=== PATIENT | male | born 1950 | race Two or more races ===

== ENCOUNTER 2019-03-23 19:24 | Inpatient (IN) | payer MEDICARE, OTHER ==
[~2019-03-23] VITALS: Ht 167.6 cm; Wt 66.7 kg
--- NOTE | 2019-03-23 19:40 | NUR ---
PT [facility]TE [facility] WITH A C/O COFFEE GROUND EMESIS S/P HD. PT HAS A TRACH WITH VENT SETTINGS: AC18, TV500, FIO2 50%, PEEP5
[2019-03-23 20:19] LABS: BASOPHILS % (AUTO) 0.2 % (0.0-2.0); HEMATOCRIT 29 % (39-51); HEMOGLOBIN 8.9 g/dL (13.5-17.5); LYMPHOCYTES # (AUTO) 0.3 /CMM (0.8-4.8); LYMPHOCYTES % (AUTO) 1.3 % (20.0-44.0); MEAN CORPUSCULAR HGB CONC 31 g/dl (31.0-36.0); MEAN CORPUSCULAR VOLUME 82 fL (80-96); MONOCYTES # (AUTO) 0.7 /CMM (0.1-1.30); MONOCYTES % (AUTO) 2.6 % (2.0-12.0); NEUTROPHILS # (AUTO) 26.2 /CMM (1.8-8.9); NEUTROPHILS % (AUTO) 95.9 % (43.0-81.0); PLATELET COUNT (AUTO) 375 /CMM (150-450); WHITE BLOOD COUNT (AUTO) 27.3 K/uL (4.3-11.0)
[2019-03-23 20:26] LABS: CALCIUM, SERUM 9.6 mg/dL (8.5-10.1); CREATININE 3.7 mg/dL (0.6-1.3); POTASSIUM 3.1 mmol/L (3.5-5.1)
[2019-03-23] MEDS ORDERED: IV NS 0.9% 250 ML BAG IV ONE (20:30)
[2019-03-23 20:37] LABS: ALBUMIN 1.9 g/dL (3.4-5.0); BILIRUBIN,DIRECT 0.2 mg/dL (0.0-0.2); BILIRUBIN,TOTAL 0.6 mg/dL (0.2-1.0); TOTAL PROTEIN, SERUM 8.8 g/dL (6.4-8.2)
[2019-03-23] MEDS ORDERED: PIPERACILLIN /TAZOBACTAM 3.375 G in IV D5W 50 ML IV ONE (21:00)
[2019-03-23] MEDS ORDERED: VANCOMYCIN 1 GM VIAL ONE (21:00)
[2019-03-23] MEDS ORDERED: PIPERACILLIN /TAZOBACTAM 3.375 G VIAL IV ONE (21:00)
[2019-03-23] MEDS ORDERED: VANCOMYCIN 1 GM in IV D5W 250 ML IV ONE (21:00)
--- NOTE | 2019-03-23 21:31 | NUR ---
pt gone to ct via [facility] with myself and RT.
[2019-03-23] MEDS ORDERED: IV NS 0.9% 1,000 ML BAG IV ONE (22:00)
--- NOTE | 2019-03-23 22:00 | NUR ---
PT RETURNED FROM CT.
--- NOTE | 2019-03-23 22:05 | NUR ---
PT HAD A LARGE BM. PT WAS CLEANED AND NEW GOWN, DIAPER, CHUX AND BED LINEN APPLIED. PT HAS A WOUND ON HIS COCCYX, LT UPPER SHOULDER, & RT HEEL.
[2019-03-23] MEDS ORDERED: PANTOPRAZOLE 40 MG VIAL ONE (22:20)
[2019-03-23 22:22] LABS: ABG BASE EXCESS -4.8 mmol/L; ABG OXYGEN SATURATION 99.1 % (92.0-98.5); ABG PCO2 31.9 mmHg (35.0-45.0); ABG PO2 203.2 mmHg (75.0-100.0); AaDO2 117.4 mmHg; COHb 0.8 % (0.5-1.5); MetHb 0.4 % (0.0-1.5); O2Hb 97.9 % (94.0-97.0); PEEP,BG 5 cm H2O; VENT MODE, BG AC 18 500 50% +5; VT, ABG 500 mL
[2019-03-23] MEDS ORDERED: PANTOPRAZOLE 40 MG VIAL IV ONE (22:30)
--- NOTE | 2019-03-23 22:55 | NUR ---
REOPRT GIVEN TO JEANMARIE PEÑALOZA
[2019-03-23] MEDS ORDERED: Z GUARD REMEDY 2 OZ OINT TP PRN (23:00)
[2019-03-23] MEDS ORDERED: MAGNESIUM HYDROXIDE 30 ML UDC PO PRN (23:00)
[2019-03-23] MEDS ORDERED: ONDANSETRON HCL/PF 4 MG/2 ML VIAL IVP PRN (23:00)
[2019-03-23] MEDS ORDERED: ZOLPIDEM TARTRATE 5 MG TABLET PO PRN (23:00)
[2019-03-23] MEDS ORDERED: ACETAMINOPHEN 325 MG TABLET PO PRN (23:00)
[2019-03-23] MEDS ORDERED: HYDROCODONE/APAP 5/325MG 1 EACH TABLET PO PRN (23:00)
--- NOTE | 2019-03-23 23:10 | NUR ---
RT NOTIFIED. READY FOR TRANSFER IN 10 MINS.
[2019-03-23] MEDS ORDERED: DEXTROSE 50%-WATER 50 ML DISP.SYRIN IV PRN (23:30)
--- NOTE | 2019-03-23 23:40 | NUR ---
PT TRANSPORTED TO [facility] VIA TOM Sheppard/RT GAUTAM.
[2019-03-23 23:50] VITALS: BP 101/51
--- NOTE | 2019-03-23 23:50 | NUR ---
68 years old male patient admitted to the [facility] unit with the DX of Sepsis, Patient arrived via gurney. In no acute distress, breathing even and unlabored. No SOB noted, Patient trach to vent with prescribed settings. trach intact, patent, in midline. saturation 98%, Suctioned patient, noted red color thick, moderate amount of secretions. skin warm, dry to touch, afebrile. Patient non-verbal, obtunded, eyes closed. No S/S of pain noted at this time, no facial grimacing noted. IV sites with no S/S of infection/ Infiltrations. Right upper chest Jona cath in place, TRACI AV shunt in place. On Tele monitoring with sinus rhythm. Body assessment done per protocol. Safety maintained, bed at the lowest locked position. Call light within reach. Will continue to monitor as per plan of care.
[2019-03-24] VITALS (22 sets, daily range): BP systolic 81–106; BP diastolic 43–74
[2019-03-24] MEDS: IV NS 0.9% 1,000 ML IV PRN ×2 (01:58→16:02)
[2019-03-24] MEDS ORDERED: ZINC1CAP2 GT (03:03)
[2019-03-24] MEDS ORDERED: METO5SOL GT (03:34)
[2019-03-24] MEDS ORDERED: METO25TA6 GT (03:34)
[2019-03-24] MEDS ORDERED: BISA-79 RC (03:34)
[2019-03-24] MEDS ORDERED: FAMO20TA8 GT (03:34)
[2019-03-24] MEDS ORDERED: AMIN30LI27 GT (03:34)
[2019-03-24] MEDS ORDERED: LACT1CAP61 GT (03:34)
[2019-03-24] MEDS ORDERED: VIT1TABL46 GT (03:34)
[2019-03-24] MEDS ORDERED: DIPH-530 GT (03:34)
[2019-03-24] MEDS ORDERED: VIT1TABL83 GT (03:34)
[2019-03-24] MEDS ORDERED: CHLO473M3 BU (03:34)
[2019-03-24] MEDS ORDERED: LEVE100S GT (03:34)
[2019-03-24] MEDS ORDERED: TRAM50TA GT (03:34)
[2019-03-24] MEDS ORDERED: HYDR-4384 GT (03:34)
--- NOTE | 2019-03-24 03:55 | NUR ---
patient seen and examined by Renita Cline, relayed to her that patient last blood sugar was 171, no coverage was given because patient NPO, and asked her if she would like to change the fluids to D5 NS, she denied. also asked her if she want morning meds to be given through g-tube, she said keep patient NPO untill further order. Noted. Will continue to keep patient NPO untill further order.
[2019-03-24] MEDS ORDERED: CHLORHEXIDINE GLUCONATE 473 ML BOTTLE MM PRN (04:00)
[2019-03-24] MEDS ORDERED: PIPERACILLIN /TAZOBACTAM 2.25 G in IV D5W 50 ML IV ONE (05:00)
[2019-03-24] MEDS ORDERED: METOCLOPRAMIDE HCL 5 MG/5 ML UDC GT SCH (05:00)
[2019-03-24] MEDS: METOPROLOL TARTRATE 25 MG TABLET GT SCH ×3 (05:00→21:00)
[2019-03-24] MEDS ORDERED: PIPERACILLIN /TAZOBACTAM 2.25 G VIAL IV ONE (05:31)
[2019-03-24] MEDS: BLOOD SUGAR DIAGNOSTIC 1 EACH STRIP IN SCH ×4 (05:41→17:04)
[2019-03-24] MEDS: PANTOPRAZOLE 40 MG VIAL IV SCH ×2 (05:51→17:04)
--- NOTE | 2019-03-24 05:51 | NUR ---
LOPRESSOR, REGLAN, AND PROTONIX NOT GIVEN ORDERED, DUE TO PATIENT NPO UNTIL FURTHER ORDER, PER LINETTE GAGNON
[2019-03-24] MEDS ORDERED: ZOLPIDEM TARTRATE 5 MG TABLET GT PRN (07:01)
[2019-03-24] MEDS ORDERED: ACETAMINOPHEN 650 MG/20.3 ML UDC GT PRN (07:02)
[2019-03-24 07:08] LABS: BASOPHILS % (AUTO) 0.2 % (0.0-2.0); EOSINOPHILS % (AUTO) 0.1 % (0.0-6.0); HEMATOCRIT 21 % (39-51); LYMPHOCYTES # (AUTO) 0.3 /CMM (0.8-4.8); LYMPHOCYTES % (AUTO) 1.5 % (20.0-44.0); MEAN CORPUSCULAR HGB CONC 29 g/dl (31.0-36.0); MEAN CORPUSCULAR VOLUME 91 fL (80-96); MONOCYTES # (AUTO) 0.5 /CMM (0.1-1.30); MONOCYTES % (AUTO) 2.9 % (2.0-12.0); NEUTROPHILS # (AUTO) 17.6 /CMM (1.8-8.9); NEUTROPHILS % (AUTO) 95.3 % (43.0-81.0); PLATELET COUNT (AUTO) 240 /CMM (150-450); RED BLOOD CELL COUNT(AUTO) 2.28 MIL/uL (4.5-6.0); WHITE BLOOD COUNT (AUTO) 18.5 K/uL (4.3-11.0)
[2019-03-24] MEDS ORDERED: MAGNESIUM HYDROXIDE 30 ML UDC GT PRN (07:13)
[2019-03-24] MEDS ORDERED: FEE PK DOSING 1 MIN EA MC ONE (07:15)
--- NOTE | 2019-03-24 07:25 | NUR ---
Remained in bed, obtunded, In no acute distress, breathing even and unlabored. No SOB noted, Patient trach to vent with prescribed settings. trach intact, patent, in midline. saturation 100%, No S/S of pain noted at this time, no facial grimacing noted. IV sites with no S/S of infection/ Infiltrations, with fluids as ordered. Due meds given as ordered, tolerated well. On Tele monitoring with sinus rhythm. Safety maintained, bed at the lowest locked position. Call light within reach. endorse to AM shift nurse for BERNABE
[2019-03-24] MEDS ORDERED: VANCOMYCIN 500 MG in IV D5W 100 ML IV PRN (07:30)
[2019-03-24 07:59] LABS: BAND % (MANUAL) 2 % (0.0-5.0); LYMPHOCYTES % (MANUAL) 3 % (16-48); MONOCYTES % (MANUAL) 3 % (0-11.0); NEUTROPHILS % (MANUAL) 92 (42-76)
--- NOTE | 2019-03-24 08:00 | NUR ---
TD/RN AM SHIFT INITIAL NOTES RECEIVED PT ASLEEP IN BED, PT OBTUNDED, OPEN EYES. NO GRIMACING NOTED, NO ACUTE CHANGE OF CONDITION OR ACTIVE BLEEDING NOTED. NOTED WITH LOW BP 91/49, PRIMARY MD TO BE NOTIFIED, CHARGE NURSE AWARE. ON VENTILATOR WITH RATES SET PRESCRIBED, SATURATING @ 100%, LUNG SOUNDS CLEAR, RESPIRATIONS EVEN & UNLABORED. LUNG SOUNDS CLEAR. ON TELE WITH SINUS RHYTHM WITH PVCs AND PACs, HR 87. WITRH ON GOING IV INFUSION OF NS @ 60CC/HR, IV SITE PATENT WITH NO S/S OF INFECTION. AV SHUNT WITH POSITIVE THRILL & BRUIT, MANDO CATHETER DRESSING INTACT, CLEAN & DRY. PT ON NPO STATUS, GT CLAMP. PT IS COMFORTABLE, SCHEDULED AM MEDS TO BE GIVEN. CL WITHIN REACHED AND SAFETY MAINTAINED. ON GOING MONITORING. Addendum: 03/24/19 at 1139 by DERREK MANRIQUE RN ERROR IN CHARTING: TELE READING NOTED WITH NO PVCs AND PACs.
[2019-03-24] MEDS ORDERED: LACTOBACILLUS RHAMNOSUS GG 1 EACH CAP.SPRINK PO SCH (09:00)
[2019-03-24] MEDS: VIT B CMPLX 3/FA/VIT C/BIOTIN 1 TAB TABLET GT SCH (09:01)
[2019-03-24] MEDS: VITAMIN B COMP W-C 1 TAB TABLET GT SCH (09:01)
[2019-03-24] MEDS: LEVETIRACETAM SOL (5 ML) 100 MG/ML UDC GT SCH ×3 (09:01→21:39)
[2019-03-24] MEDS: ZINC SULFATE 220 MG CAPSULE GT SCH (09:02)
[2019-03-24] MEDS: TRAMADOL HCL 50 MG TABLET GT SCH (09:02)
[2019-03-24] MEDS: FAMOTIDINE (20 MG) 20 MG TABLET GT SCH (09:02)
[2019-03-24] MEDS: LACTOBACILLUS RHAMNOSUS GG 1 EACH CAP.SPRINK GT SCH ×2 (09:02→17:04)
--- NOTE | 2019-03-24 09:25 | NUR ---
TD/RN CONSENTS CONSENT OBTAINED FROM PT'S DAUGHTER (NEO SHIRLEY) FOR BLOOD TRANSFUSION AND HEMODIALYSIS. CONSENTS FILED IN CHART. CHARGE NURSE MADE AWARE.
[2019-03-24 09:41] LABS: CREATININE 3.8 mg/dL (0.6-1.3)
--- NOTE | 2019-03-24 09:43 | NUR ---
TD/RN ROUNDS - DR. TEE NOTIFIED DR. TEE OF PT'S HGB LEVEL. VERBAL ORDER RECEIVED TO TRANSFUSE 2 UNITS OF PRBC THEN RE-CHECK H&H AFTER ONE HOUR. ORDER NOTED AND CARRIED OUT.
[2019-03-24 09:46] LABS: MAGNESIUM 2.4 mg/dL (1.8-2.4); PHOSPHORUS 3.2 mg/dL (2.5-4.9)
[2019-03-24] MEDS: METOCLOPRAMIDE HCL 10 MG/10 ML UDC GT SCH ×3 (12:15→21:39)
[2019-03-24] MEDS: PIPERACILLIN /TAZOBACTAM 2.25 G in IV D5W 50 ML IV SCH ×2 (12:16→18:05)
--- NOTE | 2019-03-24 14:42 | NUR ---
TD/RN BLOOD TRANSFUSION - COMPLETED PT RECEIVED 2 UNITS OF PRBC WITH DIALYSIS. NO ADVERSE REACTION NOTED DURING AND POST TRANSFUSION. PT NOTED LOW BP SBP ABOVE 80s. DR. TEE NOTIFIED. DIALYSIS ON GOING. RECEIVED AN ORDER FROM DR. TEE TO TRANSFER PT ICU.
[2019-03-24] MEDS ORDERED: NOREPINEPHRINE 8 MG in IV D5W 500 ML IV PRN (15:00)
--- NOTE | 2019-03-24 15:15 | NUR ---
ICU/MRP CONTROLLER TO ICU - ROOM 255 PT BP STILL LOW AFTER DIALYSIS AND BLOOD TRANSFUSION. RECEIVED ORDER FROM DR. TEE TO TRANSFER PT TO ICU.
--- NOTE | 2019-03-24 15:20 | NUR ---
RT PT TRANSFERRED TO ICU ROOM 255. VENT PLUGGED INTO RED OUTLET. BMV AND SPARE TRACH @ HOB. ALARMS ARE SET AND AUDIBLE. NO SOB OR RESPIRATORY DISTRESS NOTED @ THIS TIME.
[2019-03-24 15:37] LABS: HEMOGLOBIN 9.3 g/dL (13.5-17.5)
--- NOTE | 2019-03-24 16:18 | NUR ---
ICU/RN H&H POST TRANSFUSION NOTIFIED DR. TEE OF PT'S H&H RESULTS (9.3 & 29). THE ADDITIONAL 2 UNITS PRBC ON STANDBY. ANOTHER H&H SCHEDULED @ 1999. NO ACUTE SIGN OF ACTIVE BLEEDING NOTED AT THIS TIME.
[2019-03-24] MEDS ORDERED: VANCOMYCIN 1 GM in IV D5W 250 ML IV ONE (17:00)
--- NOTE | 2019-03-24 17:06 | NUR ---
RT PT RECEIVED TRACH AND ON [facility] VENT. VENT IS PLUGGED INTO RED OUTLET W BMV AND SPARE TRACH @ HOB. ALARMS ARE SET AND AUDIBLE. NO RESPIRATORY DISTRESS NOTED T/O SHIFT. PT STABLE. Addendum: 03/24/19 at 1831 by RUSS NIETO RT Amended: Links added.
--- NOTE | 2019-03-24 17:30 | NUR ---
ICU/RN AFTERNOON ROUNDS PM CARE PROVIDED. NO CHANGE OF CONDITION. BP NOT LOW. MONITORING CONTINUED.
--- NOTE | 2019-03-24 19:19 | NUR ---
ICU/RN AM SHIFT END NOTES ALL NEEDS MET. BP REMAINED AT THE LOW SIDE BUT NOT LOW TO START LEVOPHED. PT ENDORSED TO PM NURSE TO CONTINUE CARE. CL WITHIN REACHED AND SAFETY MAINTAINED.
--- NOTE | 2019-03-24 19:40 | NUR ---
RN NOTES RECEIVED PATIENT WTIH TRACH PORTEX 7 CONNECTED TO VENT SETTING AC 18 TV 500 FIO2 35% AND PEEP 5. NO RESPIRATORY DISTRESS ASLEEP. PATIENT IS NON VERBAL BUT ABLE TO OPEN EYES TO STIMULI/ SR ON TELE MONITOR. GT CLAMPED AT THIS TIME. IV SITE RAC AND JENNIFER MIDLINE WITH NS @ 60 ML./HR INTACT AND PATENT. RCW MANDO CATH CLEAN AND DRY WITH DRESSING TRACI AV SHUNT WITH + BRUIT AND THRILL. NO ACTIVE BLEEDING PRESENT. PATIENT HAD AN EPISODE OF HGB 6 THIS MORNING S/P BLOOD TRANSFUSION. AND WILL CONTINUE TO MONITOR H/H ORDERED. KEPT PT CLEAN AND DRY. OFFLOADED EXT WITH PILLOWS. TURNED AND REPOSITIONED FOR SKIN MANAGEMENT. BED LOCKED AND SECURED. WILL CONT. TO MONITOR.
[2019-03-24] MEDS ORDERED: VANCOMYCIN 1 GM in IV D5W 250 ML IV SCH (20:00)
[2019-03-24 20:40] LABS: HEMOGLOBIN 8.5 g/dL (13.5-17.5)
--- NOTE | 2019-03-24 21:20 | NUR ---
RN NOTES CALLED NEO DAUGHTER TO GET CONSENT FOR EGD AND LEAVE A MESSAGE. WAITING TO CALL BACK.
--- NOTE | 2019-03-24 22:06 | NUR ---
RN NOTES INFORMED LINETTE GAGNON LINE SUPPLY THAT PATIENT HAD MEDICINE TONIGHT (REGLAN AND KEPPRA VIA GT) AND GT IS CLAMPED AND NOTICED THAT THE PATIENT IS IN SCHEDULE FOR EGD TOMORROW @ 6AM. PER CELL BIOLOGY SCIENTIST TO HOLD MEDICINE FOR NOW AND GET A CONSENT FOR EGD. NOTED AND CARRIED OUT ORDERS.
[2019-03-25] VITALS (36 sets, daily range): BP systolic 90–130; BP diastolic 34–87
[2019-03-25] MEDS: PIPERACILLIN /TAZOBACTAM 2.25 G in IV D5W 50 ML IV SCH ×4 (00:08→17:14)
[2019-03-25] MEDS: BLOOD SUGAR DIAGNOSTIC 1 EACH STRIP IN SCH ×4 (00:09→17:16)
[2019-03-25] MEDS: METOCLOPRAMIDE HCL 10 MG/10 ML UDC GT SCH ×3 (05:00→21:42)
[2019-03-25] MEDS: METOPROLOL TARTRATE 25 MG TABLET GT SCH ×3 (05:00→21:00)
--- NOTE | 2019-03-25 05:30 | NUR ---
RN NOTES CALLED DAUGHTERS AGAIN NEO AND UBALDO MAKI (RP) TO GET A CONSENT FOR EGD AND LEFT A MESSAGE, STILL WAITING FOR THE CALL BACK.
[2019-03-25] MEDS ORDERED: ANESTHESIA TRAY IN PYXIS 1 EA TRAY MC ONE (05:46)
[2019-03-25] MEDS: PANTOPRAZOLE 40 MG VIAL IV SCH ×2 (05:46→17:14)
--- NOTE | 2019-03-25 07:00 | NUR ---
RN NOTES 0610 AM - EMERGENT EGD STARTED BY OR STAFF AT BEDSIDE UNDER DR. GONZALES, PT. TOLERATED IT WELL. VSS. NO ACUTE RESPIRATORY DISTRESS. WITH NEW ORDER ACKNOWLEDGE. PT IS CLEAN AND DRY. NO PRESSORS. BS WNL. WILL ENDORSED CONTINUITY OF CARE TO AM NURSE.
--- NOTE | 2019-03-25 07:53 | NUR ---
ICU/RN AM SHIFT INITIAL NOTES RECEIVED PT ASLEEP IN BED, PT NON-VERBAL, OPEN EYES TO STIMULI. NO ACUTE DISTRESS OR CHANGE OF CONDITION NOTED. NO GRIMACING NOTED. VENT DEPENDENT WITH RATES SET PRESCRIBED, SATURATING @ 100%, RESPIRATIONS EVEN & UNLABORED, LUNG SOUNDS CLEAR. SUCTIONED FOR AIRWAY CLEARANCE. ON TELE MONITORING, SINUS RHYTHM, HR 66. IV SITES PATENT WITH NO S/S OF INFECTION, RIGHT CHEST WALL MANDO CATHETER DRESSING INTACT AND CLEAN. MIDLINE WITH ON GOING INFUSION OF NS @ 60CC/HR. AV SHUNT ON LEFT UPPER ARM POSITIVE OF THRILL & BRUIT. GT CLAMP. PT IS COMFORTABLE. SCHEDULED AM MEDS TO BE GIVEN. CL WITHIN REACHED AND SAFETY MAINTAINED. ON GOING MONITORING.
--- NOTE | 2019-03-25 08:19 | NUR ---
ICU/PAPER MACHINE BACK TENDER CONSULT PT SEEN & EXAMINED BY WOUND NURSE RODRIGO. MONITORING CONTINUED.
--- NOTE | 2019-03-25 08:35 | NUR ---
WOUND CARE CONSULT: PT PRESENTS WITH MULTIPLE WOUNDS PRESENT ON ADMISSION. RECOMMEND SURGICAL AND DPM CONSULTS. DR MILLER AWARE OF CONSULT REQUESTS. PT ON FIRST STEP [facility] LOW AIRLOSS MATTRESS. ALL SKIN PROTECTION MEASURES IN PLACE AND DISCUSSED WITH NURSING STAFF. DEFER TO SURGICAL TEAMS FOR WOUND TREATMENT PLAN. CURRENT JOSE SCORE IS 11. WILL SEE PRN. MCCAULEY IN AGREEMENT WITH PLAN OF CARE. Addendum: 03/25/19 at 0837 by RODRIGO PEGN WNDNU Amended: Links added.
[2019-03-25] MEDS: LACTOBACILLUS RHAMNOSUS GG 1 EACH CAP.SPRINK GT SCH ×2 (09:02→17:14)
[2019-03-25] MEDS: VIT B CMPLX 3/FA/VIT C/BIOTIN 1 TAB TABLET GT SCH (09:02)
[2019-03-25] MEDS: ZINC SULFATE 220 MG CAPSULE GT SCH (09:02)
[2019-03-25] MEDS: FAMOTIDINE (20 MG) 20 MG TABLET GT SCH (09:02)
[2019-03-25] MEDS: VITAMIN B COMP W-C 1 TAB TABLET GT SCH (09:03)
[2019-03-25] MEDS: LEVETIRACETAM SOL (5 ML) 100 MG/ML UDC GT SCH ×2 (09:03→21:42)
[2019-03-25] MEDS: TRAMADOL HCL 50 MG TABLET GT SCH (09:03)
[2019-03-25 10:30] LABS: BASOPHILS # (AUTO) 0.1 /CMM (0.0-0.2); BASOPHILS % (AUTO) 0.4 % (0.0-2.0); EOSINOPHILS % (AUTO) 0.6 % (0.0-6.0); HEMATOCRIT 26 % (39-51); HEMOGLOBIN 8.3 g/dL (13.5-17.5); LYMPHOCYTES # (AUTO) 0.3 /CMM (0.8-4.8); LYMPHOCYTES % (AUTO) 2.1 % (20.0-44.0); MEAN CORPUSCULAR HGB CONC 32 g/dl (31.0-36.0); MEAN CORPUSCULAR VOLUME 85 fL (80-96); MONOCYTES # (AUTO) 0.7 /CMM (0.1-1.30); MONOCYTES % (AUTO) 4.1 % (2.0-12.0); NEUTROPHILS # (AUTO) 15.3 /CMM (1.8-8.9); NEUTROPHILS % (AUTO) 92.8 % (43.0-81.0); PLATELET COUNT (AUTO) 245 /CMM (150-450); RED BLOOD CELL COUNT(AUTO) 3.05 MIL/uL (4.5-6.0); WHITE BLOOD COUNT (AUTO) 16.4 K/uL (4.3-11.0)
[2019-03-25 10:44] LABS: CALCIUM, SERUM 8.6 mg/dL (8.5-10.1); CREATININE 3.4 mg/dL (0.6-1.3); MAGNESIUM 1.9 mg/dL (1.8-2.4); PHOSPHORUS 2.9 mg/dL (2.5-4.9)
[2019-03-25 10:46] LABS: POTASSIUM 2.5 mmol/L (3.5-5.1)
[2019-03-25] MEDS: INSULIN REGULAR, HUMAN 100 UNIT/ML 3 ML VIAL SQ PRN (11:35)
[2019-03-25] MEDS ORDERED: SILVER NITRATE APPLICATOR 1 EA BOX TP ONE (13:00)
[2019-03-25] MEDS ORDERED: LIDOCAINE 1%-EPI 1:100,000 20 ML VIAL TP ONE (13:00)
--- NOTE | 2019-03-25 13:58 | NUR ---
ICU/RN CONSENT - WOUND DEBRIDEMENT TELEPHONE CONSENT OBTAINED FROM PT'S DAUGHTER (NEO SHIRLEY) FOR SERIAL DEBRIDEMENT OF LEFT BUTTOCK AND SACRUM WOUND. CONSENT FORM FILED ON PT'S CHART.
[2019-03-25] MEDS: IV NS 0.9% 1,000 ML IV PRN (15:02)
--- NOTE | 2019-03-25 17:00 | NUR ---
ICU/RN AFTERNOON ROUNDS PM CARE PROVIDED. NO CHANGE OF CONDITION. MONITORING CONTINUED.
[2019-03-25] MEDS: DAKINS QUARTER STRENGTH (0.125%) 480 ML BOTTLE TOP SCH (18:30)
--- NOTE | 2019-03-25 18:35 | NUR ---
RT END OF THE SHIFT REPORT, Pt. rec. 68 year old female @0700 AM pt. trach'd Portex # 7 on ventilator with noted settings. Vent alarms are set and audible with Ambu bag by bedside. REGIONAL GEODETIC ADVISOR cuff pressure done, HME changed. Vent is plugged into red outlet. bilaterally rales B/S noted and sux'd for minimal amount of ortiz secretions, equal chest rise noted. pt. stable and continue to monitor. NO CHANGES T/O DAY report will pass to PM shift. Addendum: 03/25/19 at 1837 by CURTIS CHRISTIANSEN RT Amended: Links added. Addendum: 03/25/19 at 1840 by CURTIS CHRISTIANSEN RT ((( PT. IS MALE ))) correction
--- NOTE | 2019-03-25 19:20 | NUR ---
ICU/RN AM SHIFT END NOTES ALL NEEDS MET. NO ACUTE CHANGE OF CONDITION NOTED DURING THE SHIFT. PT ENDORSED TO PM NURSE TO CONTINUE CARE. CL WITHIN REACHED AND SAFETY MAINTAINED.
--- NOTE | 2019-03-25 19:25 | NUR ---
RN NOTES PATIENT ON BED EYES OPEN, RESPONSIVE TO TACTILE STIMULI. WITH TRACH PORTEX 7 WITH VENT SETTING AC 18 TV 500 FIO2 35% PEEP 5 TOLERATED WELL WITHOUT RESPIRATORY DISTRESS. SATURATION 100% SUCTION PATIENT WITH SMALL THICK YELLOWISH SECRETION. BILATERAL BREATH SOUND CLEAR AFTER SUCTION. SR ON TELE MONITOR. GT INTACT AND PATENT, CLAMPED. IV SITE ON RAC AND JENNIFER ML WITH NS @ 60 ML/HR AND TRACI AV SHUNT WITH POSITIVE BRUIT AND THRILL AND RCW MANDO CATH WITH CLEAN DRESSING. OFFLOADED EXT WITH PILLOWS. REDUCED PRESSURE TO BONY PROMINENCE AREA. KEPT PT CLEAN AND DRY. TURNED AND REPOSITIONED Q2H AND PRN.
--- NOTE | 2019-03-25 21:00 | NUR ---
RN NOTES BILATERAL ARTERIAL DPLER OF LE DONE AT BEDSIDE.
[2019-03-26] VITALS (12 sets, daily range): BP systolic 93–146; BP diastolic 31–75
[2019-03-26] MEDS: PIPERACILLIN /TAZOBACTAM 2.25 G in IV D5W 50 ML IV SCH ×5 (00:19→23:58)
[2019-03-26] MEDS: BLOOD SUGAR DIAGNOSTIC 1 EACH STRIP IN SCH ×5 (00:19→23:56)
[2019-03-26 04:48] LABS: BASOPHILS # (AUTO) 0.1 /CMM (0.0-0.2); BASOPHILS % (AUTO) 0.7 % (0.0-2.0); EOSINOPHILS % (AUTO) 1.5 % (0.0-6.0); HEMATOCRIT 27 % (39-51); HEMOGLOBIN 8.8 g/dL (13.5-17.5); LYMPHOCYTES # (AUTO) 0.5 /CMM (0.8-4.8); LYMPHOCYTES % (AUTO) 3.2 % (20.0-44.0); MEAN CORPUSCULAR HGB CONC 32 g/dl (31.0-36.0); MEAN CORPUSCULAR VOLUME 86 fL (80-96); MONOCYTES # (AUTO) 0.7 /CMM (0.1-1.30); MONOCYTES % (AUTO) 4.6 % (2.0-12.0); NEUTROPHILS # (AUTO) 14.1 /CMM (1.8-8.9); PLATELET COUNT (AUTO) 263 /CMM (150-450); RED BLOOD CELL COUNT(AUTO) 3.16 MIL/uL (4.5-6.0); WHITE BLOOD COUNT (AUTO) 15.6 K/uL (4.3-11.0)
[2019-03-26 05:00] LABS: CALCIUM, SERUM 8.7 mg/dL (8.5-10.1); CREATININE 3.7 mg/dL (0.6-1.3); MAGNESIUM 1.9 mg/dL (1.8-2.4); PHOSPHORUS 3.4 mg/dL (2.5-4.9)
[2019-03-26] MEDS: METOPROLOL TARTRATE 25 MG TABLET GT SCH ×3 (05:00→20:22)
[2019-03-26 05:11] LABS: POTASSIUM 2.6 mmol/L (3.5-5.1)
[2019-03-26] MEDS: METOCLOPRAMIDE HCL 10 MG/10 ML UDC GT SCH ×3 (05:11→20:21)
[2019-03-26] MEDS: PANTOPRAZOLE 40 MG VIAL IV SCH ×2 (05:11→17:14)
--- NOTE | 2019-03-26 06:55 | NUR ---
RN NOTES PATIENT STABLE NO SIGNIFICANT CHANGES THROUGHOUT THE SHIFT. TELE MONITOR REMAINED SR SATURATION >95%. AFEBRILE.VSS WITHOUT PRESSORS OR DRIP. CONTINUE WITH VENT SETTING. INCONTINENT CARE RENDERED WITH BMX1 NO URINE OUTPUT. IVF ONGOING. PATIENT LATEST POTASSIUM 2.6 WITH NEW ORDER OF 40 MEQ POTASSIUM AND DIETARY CONSULT TO START GTF WILL ENDORSED CONTINUITY OF CARE TO AM NURSE.
[2019-03-26] MEDS ORDERED: POTASSIUM CL. PREMIX PERIPHER. 50 ML IV SCH (07:00)
--- NOTE | 2019-03-26 07:52 | NUR ---
ICU/RN AM SHIFT INITIAL NOTES RECEIVED PT ASLEEP IN BED, RESPONSE TO STIMULI, OPEN EYES, NON-VERBAL. NO ACUTE DISTRESS OR CHANGE OF CONDITION NOTED. NO GRIMACING NOTED. VENT DEPENDENT ON AC MODE, RATES SET PRESCRIBED, SATURATING @ 100%, RESPIRATIONS EVEN & UNLABORED, LUNG SOUNDS CLEAR. SUCTIONED FOR AIRWAY CLEARANCE. ON TELE MONITORING, SINUS RHYTHM, HR 76. MID-LINE PATENT WITH ON GOING INFUSION OF NS @ 60CC/HR. RIGHT CHEST WALL MANDO CATHETER DRESSING INTACT AND CLEAN. AV SHUNT ON LEFT UPPER ARM POSITIVE OF THRILL & BRUIT. GT CLAMP. PT IS COMFORTABLE. PT IS SCHEDULED FOR DIALYSIS TODAY. AM MEDS TO BE GIVEN. CL WITHIN REACHED AND SAFETY MAINTAINED. ON GOING MONITORING.
[2019-03-26] MEDS: LEVETIRACETAM SOL (5 ML) 100 MG/ML UDC GT SCH ×2 (08:11→20:21)
[2019-03-26] MEDS: FAMOTIDINE (20 MG) 20 MG TABLET GT SCH (08:11)
[2019-03-26] MEDS: VIT B CMPLX 3/FA/VIT C/BIOTIN 1 TAB TABLET GT SCH (08:11)
[2019-03-26] MEDS: MUPIROCIN OINT 2% 22 GM TUBE TP SCH (08:12)
[2019-03-26] MEDS: ZINC SULFATE 220 MG CAPSULE GT SCH (08:12)
[2019-03-26] MEDS: VITAMIN B COMP W-C 1 TAB TABLET GT SCH (08:12)
[2019-03-26] MEDS: TRAMADOL HCL 50 MG TABLET GT SCH (08:12)
[2019-03-26] MEDS: DAKINS QUARTER STRENGTH (0.125%) 480 ML BOTTLE TOP SCH (08:12)
[2019-03-26] MEDS: LACTOBACILLUS RHAMNOSUS GG 1 EACH CAP.SPRINK GT SCH ×2 (08:12→17:14)
--- NOTE | 2019-03-26 09:59 | NUR ---
UNABLE TO FOLLOW COMMANDS, Addendum: 03/26/19 at 1001 by DERREK MANRIQUE RN ERROR IN CHARTING
--- NOTE | 2019-03-26 10:01 | NUR ---
ICU/GRADUATE INTERNSHIP OF CARE PT TRANSFERRED TO TELE1, ROOM 114#2 IN STABLE CONDITION. PT ENDORSED TO NURSE RODRIGUEZ TO CONTINUE CARE.
--- NOTE | 2019-03-26 10:01 | NUR ---
RT NOTE: RT ASSISTED WITH PATIENT TRANSFER TO ROOM 114-2 WITH NO PROBLEMS. PLACED BACK ON VENT WITH PRIOR SETTINGS. ALARMS SET AND AUDIBLE. VENT PLUGGED INTO RED OUTLET. WILL CONTINUE TO MONITOR. AMBU BAG AT [facility].
--- NOTE | 2019-03-26 10:05 | NUR ---
NURSING MANAGER OPENING NOTES RECEIVED PATIENT FROM ICU, IN STABLE CONDITION, NO ACUTE DISTRESS NOTED. GOT REPORT FROM JEANMARIE GERONIMO. PATIENT IS OBTUNDED, UNABLE TO FOLLOW COMMANDS. ON MECHANICAL VENTILATOR WITH SETTINGS ORDERED. NO S/S OF RESPIRATORY DISTRESS NOTED. ON TELE MONITOR, SINUS RHYTHM WITH 1ST DEGREE AV BLOCK. PATIENT IS CURRENTLY NPO, TF IS BEING HELD. PENDING DIETARY CONSULT. IV NS RUNNING AT 60MLS/HR. NO S/S OF INFECTION NOTED. SAFETY MAINTAINED. CALL LIGHT WITHIN REACH. WILL CONTINUE TO MONITOR.
[2019-03-26] MEDS: POTASSIUM CL. PREMIX PERIPHER. 50 ML IV SCH ×4 (10:26→16:52)
[2019-03-26] MEDS: IV NS 0.9% 1,000 ML IV PRN (10:27)
[2019-03-26] MEDS: VANCOMYCIN 500 MG in IV D5W 100 ML IV PRN (14:36)
--- NOTE | 2019-03-26 14:37 | NUR ---
did not administer vanco due to vanco trough level being 21.
[2019-03-26] MEDS: NEPRO 1,000 ML BOTTLE GT PRN (16:53)
[2019-03-26] MEDS: PROSOURCE / PROSTAT (PYXIS) 30 ML UDC GT SCH (17:16)
--- NOTE | 2019-03-26 19:30 | NUR ---
MANAGER FIELD CLOSING NOTES PT IN STABLE CONDITION. NO ACUTE CHANGES TO PT CONDITION DURING MY SHIFT. ALL NEEDS MET. PATIENT IS ON MECHANICAL VENTILATOR, TOLERATING SETTINGS WELL. TELE MONITOR REMAINED SR. TUBE FEEDING WAS CONTINUED PER DIETARY CONSULT. NEPHRO @45MLS/HR X24HR WAS HANGED. TOLERATING WELL. PATIENT WAS KEPT CLEAN AND DRY. WOUND CARE WAS RENDERED ORDERED. SAFETY MAINTAINED. CALL LIGHT WITHIN REACH. ENDORSED TO TILT TRAY DRIVER NURSE TO CONTINUE CARE.
--- NOTE | 2019-03-26 20:32 | NUR ---
TELE/RN OPENING NOTES SR 85, PATIENT HOB ELEVATED ON MECHANICAL VENT WITH PRESCRIBED SETTING, ON GTUBE FEEDING WITH NO RESIDUAL.PATENT,OBTUNDED, EXTENSIVE ASSISTANCE WITH ALL ADLS, MONITORING FOR ANY CHANGES, IV NS AT 60ML/HR, TO MONITOR.BED LOCKED, REPOSITIONED AND TURNED FOE COMFORT, KEPT COMFORTABLE.
[2019-03-27] VITALS: BP 98/39
--- NOTE | 2019-03-27 00:09 | NUR ---
TELE/RN NOTES BLOD SUGAR CHECK AT 126.
[2019-03-27 04:00] VITALS: BP 118/49
[2019-03-27] MEDS: PANTOPRAZOLE 40 MG VIAL IV SCH ×2 (05:05→17:25)
[2019-03-27] MEDS: METOCLOPRAMIDE HCL 10 MG/10 ML UDC GT SCH ×3 (05:05→20:27)
[2019-03-27] MEDS: METOPROLOL TARTRATE 25 MG TABLET GT SCH ×3 (05:06→20:55)
[2019-03-27] MEDS: PIPERACILLIN /TAZOBACTAM 2.25 G in IV D5W 50 ML IV SCH ×4 (05:08→23:22)
[2019-03-27] MEDS: BLOOD SUGAR DIAGNOSTIC 1 EACH STRIP IN SCH ×4 (06:03→23:32)
--- NOTE | 2019-03-27 06:55 | NUR ---
TELE/RN NOTES BLOOD SUGAR CHECK 224, HELD FEEDING ,INSULIN NOT GIVEN. NOTED RESIDUAL 150ML WILL MONITOR.
--- NOTE | 2019-03-27 07:30 | NUR ---
TWISTING MACHINE OPERATOR OPENING NOTES RECEIVED PATIENT IN BED IN STABLE CONDITION. NO ACUTE DISTRESS IS NOTED. PATIENT IS OBTUNDED. ON MECHANICAL VENTILATOR, WITH SETTINGS ORDERED TOLERATING WELL. PATIENT IS ON TELE MONITOR WITH SINUS RHYTHM. NO SIGNS AND SYMPTOMS OF RESPIRATORY DISTRESS IS NOTED. RECEIVED PATIENT WITH TUBE FEEDING BEING HELD DUE TO HIGH RESIDUAL AMOUNT. WILL RECHECK IN A COUPLE OF HOURS. IV NS IS RUNNING AT 60MLS/HR. NO S/S OF INFECTION NOTED. PATENT AND FLUSHED WELL. MID LINE INTACT AND BLOOD RETURN IS PRESENT. SAFETY MAINTAINED. CALL LIGHT WITHIN REACH, WILL CONTINUE TO MONITOR.
--- NOTE | 2019-03-27 07:37 | NUR ---
TELE/RN CLOSING NOTES ALL NEEDS ATTENDED, HOB ELEVATED, SUCTION NEEDED, ON MECHANICAL VENT, GTUBE ON HOLD DUE TO RESIDUAL MORE THAN 190 ML. ENDORSE TO AM RN FOR BERNABE. BED LOCKED,
[2019-03-27 08:00] VITALS: BP 82/42
[2019-03-27 08:12] LABS: BASOPHILS # (AUTO) 0.1 /CMM (0.0-0.2); BASOPHILS % (AUTO) 0.6 % (0.0-2.0); EOSINOPHILS % (AUTO) 1.7 % (0.0-6.0); HEMATOCRIT 26 % (39-51); HEMOGLOBIN 8.4 g/dL (13.5-17.5); LYMPHOCYTES # (AUTO) 0.3 /CMM (0.8-4.8); LYMPHOCYTES % (AUTO) 2.4 % (20.0-44.0); MEAN CORPUSCULAR HGB CONC 32 g/dl (31.0-36.0); MEAN CORPUSCULAR VOLUME 86 fL (80-96); MONOCYTES # (AUTO) 0.6 /CMM (0.1-1.30); MONOCYTES % (AUTO) 5.1 % (2.0-12.0); NEUTROPHILS # (AUTO) 10.8 /CMM (1.8-8.9); NEUTROPHILS % (AUTO) 90.2 % (43.0-81.0); PLATELET COUNT (AUTO) 264 /CMM (150-450); RED BLOOD CELL COUNT(AUTO) 3.04 MIL/uL (4.5-6.0)
[2019-03-27 08:45] LABS: CALCIUM, SERUM 8.6 mg/dL (8.5-10.1); CREATININE 3.3 mg/dL (0.6-1.3); POTASSIUM 3.2 mmol/L (3.5-5.1)
[2019-03-27] MEDS: LACTOBACILLUS RHAMNOSUS GG 1 EACH CAP.SPRINK GT SCH ×2 (08:59→17:25)
[2019-03-27] MEDS: VIT B CMPLX 3/FA/VIT C/BIOTIN 1 TAB TABLET GT SCH (08:59)
[2019-03-27] MEDS: VITAMIN B COMP W-C 1 TAB TABLET GT SCH (08:59)
[2019-03-27] MEDS: ZINC SULFATE 220 MG CAPSULE GT SCH (08:59)
[2019-03-27] MEDS: FAMOTIDINE (20 MG) 20 MG TABLET GT SCH (09:00)
[2019-03-27] MEDS: TRAMADOL HCL 50 MG TABLET GT SCH (09:00)
[2019-03-27] MEDS: PROSOURCE / PROSTAT (PYXIS) 30 ML UDC GT SCH ×2 (09:00→17:25)
[2019-03-27] MEDS: LEVETIRACETAM SOL (5 ML) 100 MG/ML UDC GT SCH ×2 (09:00→20:27)
[2019-03-27] MEDS: DAKINS QUARTER STRENGTH (0.125%) 480 ML BOTTLE TOP SCH (09:19)
[2019-03-27] MEDS: MUPIROCIN OINT 2% 22 GM TUBE TP SCH (09:20)
--- NOTE | 2019-03-27 10:00 | NUR ---
RT PATIENT RECEIVED TRACH'D ON [facility] VENT WITH SETTINGS PER MD ORDER. PRACTICE NURSE DONE. SPARE TRACH AND AMBU BAG AT BEDSIDE. VENT PLUGGED INTO RED OUTLET. ALARMS ON AND FUNCTIONING PROPERLY. SUCTIONED AND MONITORED PRN. NO SOB NOTED. WILL CONTINUE TO MONITOR FOR ANY CHANGES. Addendum: 03/27/19 at 1821 by KIRILL SPAIN RT Amended: Links added.
[2019-03-27 12:00] VITALS: BP 83/46
--- NOTE | 2019-03-27 12:00 | NUR ---
HELD PROSTAT DUE TO IT NOT BEING AVAILABLE ON THE FLOOR. RESUMED TUBE FEEDING AT 45MLS/HR, WILL WATCH OUT FOR RESIDUAL.
[2019-03-27] MEDS: INSULIN REGULAR, HUMAN 100 UNIT/ML 3 ML VIAL SQ PRN ×3 (12:53→23:35)
[2019-03-27] MEDS ORDERED: IV NS 0.9% 500 ML IV ONE (13:00)
[2019-03-27] MEDS ORDERED: LIDOCAINE 1%-EPI 1:100,000 20 ML VIAL TP ONE (13:30)
--- NOTE | 2019-03-27 14:00 | NUR ---
ROUNDED WITH THE DR. UNABLE TO DISCHARGE PATIENT TODAY DUE TO HYPOTENSION. DR ORDERED IV NS 500ML BOLUS AT 100MLS/HR. WILL FOLLOW ORDERS AND WATCH OUT FOR RESPIRATORY DISTRESS AND FLUID OVERLOAD. WILL CONTINUE TO MONITOR CLOSELY.
[2019-03-27 16:00] VITALS: BP 94/46
--- NOTE | 2019-03-27 17:15 | NUR ---
CHECKED RESIDUAL ON TUBE FEEDING, RESIDUAL MORE THAT 160, FEEDING WILL BE HELD.
--- NOTE | 2019-03-27 19:15 | NUR ---
RN OPENING NOTE RECEIVED PATIENT IN BED RESTING WITH HOB ELEVATED. OBTUNDED. ON VENT, GTF ON AND RUNNING. IN NO APPARENT DISTRESS NOTED AT THIS TIME. BED IS LOWERED TO LOWEST POSITION FOR SAFETY. WILL CONTINUE TO MONITOR.
--- NOTE | 2019-03-27 19:30 | NUR ---
RUBBER MOLDER CLOSING NOTED PT IN STABLE CONDITION. NO ACUTE CHANGED TO PT CONDITION DURING MY SHIFT. ALL NEEDS MET. PT KEPT CLEAN AND DRY AND FREQUENTLY REPOSITIONED. TUBE FEEDING IS STILL ON HOLD. BOLUS IV IS RUNNING AT 100MLS/HR. SAFETY WAS MAINTAINED, CALL LIGHT WITHIN REACH, ISOLATION WAS OBSERVED. WILL ENDORSE TO PLASTER MODEL AND MOLD MAKER NURSE TO CONTINUE CARE.
[2019-03-27 20:00] VITALS: BP 106/72
[2019-03-28] VITALS (7 sets, daily range): BP systolic 108–148; BP diastolic 54–86
[2019-03-28] MEDS: METOCLOPRAMIDE HCL 10 MG/10 ML UDC GT SCH ×3 (04:42→21:18)
[2019-03-28] MEDS: METOPROLOL TARTRATE 25 MG TABLET GT SCH ×3 (04:42→21:18)
[2019-03-28] MEDS: NEPRO 1,000 ML BOTTLE GT PRN (04:42)
[2019-03-28] MEDS: PANTOPRAZOLE 40 MG VIAL IV SCH ×2 (05:05→17:05)
[2019-03-28] MEDS: PIPERACILLIN /TAZOBACTAM 2.25 G in IV D5W 50 ML IV SCH ×2 (05:05→11:19)
[2019-03-28] MEDS: BLOOD SUGAR DIAGNOSTIC 1 EACH STRIP IN SCH ×3 (05:29→17:05)
[2019-03-28] MEDS: INSULIN REGULAR, HUMAN 100 UNIT/ML 3 ML VIAL SQ PRN ×3 (05:55→17:32)
--- NOTE | 2019-03-28 07:25 | NUR ---
RN CLOSING NOTE PATIENT IS IN BED RESTING WITH HOB ELEVATED. OBTUNDED, ON VENT, ON GTF. GTF KEPT PATENT AND RUNNING. ALL DUE MEDS GIVEN AND TOLERATED WELL. IN NO APPARENT DISTRESS NOTED AT THIS TIME. PATIENT IS KEPT CLEAN, DRY, AND COMFORTABLE. ENDORSED TO AM SHIFT RN FOR CONTINUATION OF CARE.
[2019-03-28 07:29] LABS: BASOPHILS # (AUTO) 0.1 /CMM (0.0-0.2); BASOPHILS % (AUTO) 0.7 % (0.0-2.0); EOSINOPHILS % (AUTO) 3.6 % (0.0-6.0); HEMATOCRIT 25 % (39-51); HEMOGLOBIN 8.1 g/dL (13.5-17.5); LYMPHOCYTES # (AUTO) 0.5 /CMM (0.8-4.8); LYMPHOCYTES % (AUTO) 5.2 % (20.0-44.0); MEAN CORPUSCULAR HGB CONC 32 g/dl (31.0-36.0); MEAN CORPUSCULAR VOLUME 86 fL (80-96); MONOCYTES # (AUTO) 0.6 /CMM (0.1-1.30); MONOCYTES % (AUTO) 6.1 % (2.0-12.0); NEUTROPHILS # (AUTO) 7.7 /CMM (1.8-8.9); NEUTROPHILS % (AUTO) 84.4 % (43.0-81.0); PLATELET COUNT (AUTO) 234 /CMM (150-450); RED BLOOD CELL COUNT(AUTO) 2.91 MIL/uL (4.5-6.0); WHITE BLOOD COUNT (AUTO) 9.1 K/uL (4.3-11.0)
[2019-03-28 07:44] LABS: CALCIUM, SERUM 8.1 mg/dL (8.5-10.1); CREATININE 3.7 mg/dL (0.6-1.3); MAGNESIUM 1.9 mg/dL (1.8-2.4); PHOSPHORUS 3.2 mg/dL (2.5-4.9)
[2019-03-28] MEDS: FAMOTIDINE (20 MG) 20 MG TABLET GT SCH (08:19)
[2019-03-28] MEDS: VIT B CMPLX 3/FA/VIT C/BIOTIN 1 TAB TABLET GT SCH (08:19)
[2019-03-28] MEDS: LACTOBACILLUS RHAMNOSUS GG 1 EACH CAP.SPRINK GT SCH ×2 (08:19→17:05)
[2019-03-28] MEDS: LEVETIRACETAM SOL (5 ML) 100 MG/ML UDC GT SCH ×2 (08:19→21:18)
[2019-03-28] MEDS: ZINC SULFATE 220 MG CAPSULE GT SCH (08:19)
[2019-03-28] MEDS: TRAMADOL HCL 50 MG TABLET GT SCH (08:20)
[2019-03-28] MEDS: VITAMIN B COMP W-C 1 TAB TABLET GT SCH (08:20)
[2019-03-28] MEDS: PROSOURCE / PROSTAT (PYXIS) 30 ML UDC GT SCH ×2 (08:20→17:05)
[2019-03-28] MEDS: MUPIROCIN OINT 2% 22 GM TUBE TP SCH (08:21)
[2019-03-28] MEDS: DAKINS QUARTER STRENGTH (0.125%) 480 ML BOTTLE TOP SCH (08:25)
[2019-03-28 08:29] LABS: POTASSIUM 2.7 mmol/L (3.5-5.1)
--- NOTE | 2019-03-28 08:30 | NUR ---
Tele/RN - Assessment Patient is obtunded, no s/s of pain, afebrile, no active bleeding, not in any form of distress, trached and vent dependent with Portex 7 secured and intact, vent settings AC18, TV500, FiO2 35%, PEEP 5, tolerated well. Tele shows SR. Labs reviewed, critical potassium level relayed to ZURI Gonzáles. Will do wound treatment as ordered, repositioned per protocol. Patient scheduled for HD today. Contact precautions maintained for MRSA wound. Will continue with current medical management.
[2019-03-28] MEDS ORDERED: POTASSIUM CHLORIDE 20 MEQ POWDER PACKET GT ONE (11:00)
[2019-03-28] MEDS ORDERED: MUPI22OI7 TP (13:33)
[2019-03-28] MEDS ORDERED: VANC1VIA IV (13:33)
[2019-03-28] MEDS ORDERED: Nepro GT (13:33)
[2019-03-28] MEDS ORDERED: PIPE3.379 IV (13:33)
--- NOTE | 2019-03-28 15:00 | NUR ---
Tele/RN - HD treatment Patient in no acute distress, HD treatment tolerated well, no fluids removed per HD RN, vital signs stable. Patient for discharge back to SNF today.
[2019-03-28] MEDS: VANCOMYCIN 500 MG in IV D5W 100 ML IV PRN (17:05)
--- NOTE | 2019-03-28 18:50 | NUR ---
Tele/RN - End of shift summary No significant change in condition seen. Patient to be discharged to [facility], orange picker machine operator time by ambulance arranged at 20:30 per CM. Will endorse to night RN accordingly.
[2019-03-28] MEDS ORDERED: COLISTIMETHATE SODIUM 75 MG in IV NS 0.9% 50 ML IV SCH (20:00)
--- NOTE | 2019-03-28 20:57 | NUR ---
PT RCVD REBECCA'D ON MECHANICAL VENT WITH CHARTED SETTINGS. SX DONE. PT TRACH IS PATENT AND SECURE. VENT ALARMS APPEAR TO BE FUNCTIONING PROPERLY. VENT PLUGGED INTO RED OUTLET. AMBU BAG AT BEDSIDE. NO SOB NOTED. Addendum: 03/28/19 at 2056 by JOSEPH CHAMBERLAIN RT Amended: Links added.
[2019-03-28] MEDS ORDERED: CEFTAZIDIME 1 G in IV D5W 50 ML IV SCH (21:00)
--- NOTE | 2019-03-28 23:49 | NUR ---
RN NOTES PATIENT IN BED, ALERT TO SELF, NO DISTRESS NOTED. BREATHING EVEN AND UNLABORED. VENT SETTING WELL TOLERATED. NO PHYSICAL MANIFESTATION OF PAIN OR DISCOMFORT. PICKEP UP BY AMBULANCE AT 2300 IN STABLE CONDITIONS, VITAL SIGNS WNL . WILL BE DISCHARGED TO [facility]. ENDORSEMENT GIVEN TO JULISSA. NEEDS ATTENDED.
== END 2019-03-28 23:50 | disposition home or self-care (01) | DRG 853 ==
LOC: ER 19:27 → TELE-TD 22:27 → ICU 03-24 15:07 → TELE1 03-26 09:33 → UNDODISIN 03-29 00:04
PROVIDERS: ADMIT Nurse Practitioner Acute Care; ATTEND Registered Nurse
PROC: 5A1955Z Respiratory Ventilation, Greater than 96 Consecutive Hours (ICD-10-PCS; principal; 2019-03-23)
PROC: 5A1D70Z Performance of Urinary Filtration, Intermittent, Less than 6 Hours Per Day (ICD-10-PCS; 2019-03-24)
PROC: 30233N1 Transfusion of Nonautologous Red Blood Cells into Peripheral Vein, Percutaneous Approach (ICD-10-PCS; 2019-03-24)
PROC: 0QB30ZZ Excision of Left Pelvic Bone, Open Approach (ICD-10-PCS; 2019-03-25)
PROC: 0KBP0ZZ Excision of Left Hip Muscle, Open Approach (ICD-10-PCS; 2019-03-25)
PROC: 0KBN0ZZ Excision of Right Hip Muscle, Open Approach (ICD-10-PCS; 2019-03-25)
PROC: 0DB68ZX Excision of Stomach, Via Natural or Artificial Opening Endoscopic, Diagnostic (ICD-10-PCS; 2019-03-25)
DX: A41.9 Sepsis, unspecified organism (principal); L89.154 Pressure ulcer of sacral region, stage 4; L89.324 Pressure ulcer of left buttock, stage 4; I21.A1 Myocardial infarction type 2; N18.6 End stage renal disease; E43 Unspecified severe protein-calorie malnutrition; R53.2 Functional quadriplegia; G92 Toxic encephalopathy; J69.0 Pneumonitis due to inhalation of food and vomit; K29.71 Gastritis, unspecified, with bleeding; Z99.11 Dependence on respirator [ventilator] status; J96.10 Chronic respiratory failure, unspecified whether with hypoxia or hypercapnia; I12.0 Hypertensive chronic kidney disease with stage 5 chronic kidney disease or end stage renal disease; D68.69 Other thrombophilia; R57.9 Shock, unspecified; J98.11 Atelectasis; K56.7 Ileus, unspecified; D62 Acute posthemorrhagic anemia; N39.0 Urinary tract infection, site not specified; J90 Pleural effusion, not elsewhere classified; N17.9 Acute kidney failure, unspecified; R64 Cachexia; E11.22 Type 2 diabetes mellitus with diabetic chronic kidney disease; Z99.2 Dependence on renal dialysis; E87.6 Hypokalemia; M20.42 Other hammer toe(s) (acquired), left foot; M20.41 Other hammer toe(s) (acquired), right foot; Z86.73 Personal history of transient ischemic attack (TIA), and cerebral infarction without residual deficits; Z93.1 Gastrostomy status; R13.10 Dysphagia, unspecified; K21.0 Gastro-esophageal reflux disease with esophagitis; E11.51 Type 2 diabetes mellitus with diabetic peripheral angiopathy without gangrene; E88.09 Other disorders of plasma-protein metabolism, not elsewhere classified; Z68.23 Body mass index [BMI] 23.0-23.9, adult; M24.542 Contracture, left hand; M24.541 Contracture, right hand; M24.574 Contracture, right foot; M24.575 Contracture, left foot; L89.126 Pressure-induced deep tissue damage of left upper back; L89.226 Pressure-induced deep tissue damage of left hip; E11.621 Type 2 diabetes mellitus with foot ulcer; L97.519 Non-pressure chronic ulcer of other part of right foot with unspecified severity; L97.529 Non-pressure chronic ulcer of other part of left foot with unspecified severity
CPT/HCPCS: 31720; 36410; 36415; 36600; 70450-TC; 71045-TC; 74018; 80048-TC; 80061-TC; 80076-TC; 80202-TC; 82803-TC; 82962-TC; 83605-TC; 83690-TC; 83735-TC; 84100-TC; 84484-TC; 85025-TC; 85027-TC; 85730-TC; 86706; 86850-TC; 86921-TC; 87040-TC; 87070-TC; 87081-TC; 87186-TC; 88305-TC; 88313-TC; 88342; 90935-TC; 93307-TC; 94002-TC; 94003-TC; 94760-TC; 94762-TC; 99082-TC; A4216; A6253; A6403; A7526; C9113; G0378; J0713; J0770; J1815; J1953; J2543; J3370; J3480; J3490; J7030; J7040; J7050; J7060; J8597; P9016-BL